=== PATIENT | male | born 1970 | race Caucasian/White ===

== ENCOUNTER 2019-01-22 04:37 | Emergency (ER) | payer BC ==
[2019-01-22] MEDS ORDERED: Succinylcholine 200 MG/10 ML MDV IV ONE (04:38)
[2019-01-22] MEDS ORDERED: Etomidate 2 MG/ML 20 ML SDV IVPUSH ONE (04:38)
[2019-01-22] MEDS ORDERED: Rocuronium 100 MG/10 ML MDV IV ONE (04:38)
[2019-01-22] MEDS ORDERED: Sodium Chloride 0.9% 10 ML Syringe FLUSH PRN (04:45)
[2019-01-22] MEDS ORDERED: Sodium Chloride 0.9% 2.5 ML Syringe FLUSH PRN (04:45)
[2019-01-22] MEDS ORDERED: ceFAZolin 2 GM in Premix Bag 1 BAG IV ONE (04:45)
[2019-01-22] MEDS ORDERED: Diphtheria,Pertussis(Acell),Tetanus Vaccine 0.5 ML Syringe IM ONE (04:45)
[2019-01-22] MEDS ORDERED: Diphtheria,Pertussis(Acell),Tetanus Vaccine 0.5 ML Syringe ONE (04:47)
[2019-01-22] MEDS ORDERED: ceFAZolin/Dextrose,Iso-Osmotic 2 GM/50 ML Duplex Bag IV ONE (04:47)
[2019-01-22] MEDS ORDERED: Sodium Chloride 0.9% 1,000 ML IV ONE ×2 (04:48→05:12)
--- NOTE | 2019-01-22 05:06 | EDM.PDOC ---
ED HPI GENERAL MEDICAL PROBLEM - General Chief Complaint: Trauma Stated Complaint: AMBULANCE Time Seen by Provider: 01/22/19 04:45 - History of Present Illness INITIAL COMMENTS - FREE TEXT/NARRATIVE: HISTORY AND PHYSICAL: History of present illness: The patient is a 48-year-old male who arrives via EMS after falling down stairs at his home which totaled proximally 15 feet and he was found by his sister after a short down time and she called EMS; on their arrival they noticed a significantly large scalp laceration on the left back of his head and he had a diminished [place] Coma Scale which they said he was 12. The patient had been drinking alcohol and further history about 2 nights of that is unclear and unknown. Past medical history surgical history and other information is unavailable at this time as the patient cannot offer any of that information and the sister is not present. Patient on arrival is nonverbal and having somnolent gurgling respirations and is on a backboard with a c-collar in place. Other information is unavailable at this time Review of systems: As per history of present illness and below otherwise all systems reviewed and negative. Past medical history: As per history of present illness and as reviewed below otherwise noncontributory. Surgical history: As per history of present illness and as reviewed below otherwise noncontributory. Social history: No reported history of drug or alcohol abuse. Family history: As per history of present illness and as reviewed below otherwise noncontributory. Physical exam: General: Well-developed well-nourished man who is nontoxic and not moving any extremities spontaneously. He is somnolent and has gurgling respirations. C- collar is in place and was maintained throughout the course of my evaluation. Backboard remains in place until I can perform that exam and then will be removed for a slider. HEENT: The patient is normocephalic but there is a large deep laceration noted at the parieto-occipital scalp measuring at least 8 cm with bone exposed but no brain matter is exposed or protruding,, pupils are 2 mm on the left and nonreactive and grossly dilated on the right and nonreactive, there is no evidence of any facial injury trauma soft tissue swelling, teeth are intact, negative for conjunctival pallor or scleral icterus, mucous membranes moist, throat clear, neck supple, nontender, trachea midline. The collar is in place and there is no gross midline step-offs or defects appreciated grossly on palpation Lungs: Clear to auscultation, with [id number], there is some diminished breath sounds at the bases, breath sounds equal bilaterally, and there is no palpable bony deformities defects or crepitus and no soft tissue injuries are appreciated Heart: S1S2, regular rhythm but the patient is bradycardic in the 60s, there is no overt murmurs appreciated, negative for clicks, rubs, or JVD. Abdomen: Soft, nondistended, nontender. Negative for masses or hepatosplenomegaly. L sounds are hypoactive. There is no evidence of any soft tissue injury appreciated such as ecchymosis or abrasion or erythema Pelvis: Stable to rock, there is a superficial abrasion/ecchymosis seen at the iliac crest on the left side without deformity Genitourinary: Normal male without any blood at the urethral meatus Rectal: Rectal tone is intact with light brown stool in the vault Extremities: Atraumatic, with no soft tissue injuries or bony deformities appreciated throughout all extremities Neuro: Patient is not moving any extremities spontaneously and is somnolent and unresponsive to painful stimuli as well as voice. Back: There are no midline step-offs or defects of the thoracic or lumbar spine no posterior rib defects or deformities crepitus and no posterior pelvis effects or deformities. There is no evidence of any soft tissue abrasions ecchymosis or erythema seen Diagnostics: EKG CBC CMP alcohol level lipase INR UA UDS 1 view chest x-ray 1 view pelvis 1 view C-spine Therapeutics: IV fluids O2 monitor patient was intubated emergently please see procedure note below, propofol for sedation, Ancef,Tdap Please note that at 04 58 the patient started to have severe bradycardia down to the 30s which then came back up to the 50s and 60s but his left pupil is now grossly dilated and unresponsive. Will continue to monitor and intervene appropriately. Procedure note: As the patient was having snoring respirations and a diminished [place] Coma Scale emergent intubation was felt to be indicated. The patient was preoxygenated and the c-collar was loosened but in line stabilization was constantly maintained throughout the procedure. Cricoid pressure was applied and etomidate and succinylcholine were administered and a 7.5 ET tube was placed without complication. There was some whitish secretions but no vomitus or blood on the cords. The patient tolerated the procedure well and there were no complications. CO2 monitor indicated good placement of the tube as stated good bilateral breath sounds. A postintubation x-ray will be performed. Propofol be started for sedation. 0447: As was discussed with Dr. Horne at [facility] in [place] who accepts the patient for transfer. Flight team is in route area Dr. Horne is aware that we will perform no trauma CTs and that will have to be performed on arrival there. 0500: Flight team is here at bedside and will begin packaging the patient for transfer. We have reviewed the one view pelvis and chest x-ray together and I will also follow-up the readings of these 2 films as well as the lateral C- spine. No pneumothorax is appreciated but there is suggestion of a pulmonary contusion on the left on my initial viewing. CRL readings will be forwarded to [facility] as well with films. All labs will be followed up as available and reviewed as well as sent to the receiving hospital. Impression: Closed head injury with significant scalp laceration and likely intracranial bleed Definitive disposition and diagnosis as appropriate pending reevaluation and review of above. Review of Systems - Review of Systems Review Of Systems: ROS reveals no pertinent complaints other than HPI. ED EXAM, GENERAL - Physical Exam Exam: See Below (See dictation) Course - Orders/Labs/Meds Orders: Active Orders 24 hr Category Date Time Status Blood Glucose Check, Bedside [RC] ONETIME Care 01/22/19 04:46 Ordered Cardiac Monitoring [RC] . DIRECTED Care 01/22/19 04:46 Ordered Oxygen Therapy, ED [RC] ASDIRECTED Care 01/22/19 04:46 Ordered Pulse Oximetry [RC] ASDIRECTED Care 01/22/19 04:46 Ordered Vaccines to be Administered [RC] PER UNIT ROUTINE Care 01/22/19 04:45 Active Cervical Spine 2V or 3V [CR] Stat Exams 01/22/19 04:46 Ordered Chest 1V Frontal [CR] Stat Exams 01/22/19 04:46 Ordered Pelvis 1V or 2V [CR] Stat Exams 01/22/19 04:46 Ordered COMPREHENSIVE METABOLIC PN,CMP [CHEM] Stat Lab 01/22/19 04:41 Ordered DRUG SCREEN, URINE [URCHEM] Stat Lab 01/22/19 04:46 Ordered ETHANOL BLOOD MEDICAL [CHEM] Stat Lab 01/22/19 04:41 Ordered INR,PT,PROTHROMBIN TIME [COAG] Stat Lab 01/22/19 04:46 Ordered LIPASE [CHEM] Stat Lab 01/22/19 04:46 Ordered UA RFX ALFRED AND CULT IF INDIC [URIN] Stat Lab 01/22/19 04:46 Ordered Sodium Chloride 0.9% [Normal Saline] 1,000 ml Med 01/22/19 04:48 Ordered IV STAT Sodium Chloride 0.9% [Saline Flush] Med 01/22/19 04:45 Ordered 10 ml FLUSH ASDIRECTED PRN Sodium Chloride 0.9% [Saline Flush] Med 01/22/19 04:45 Ordered 2.5 ml FLUSH ASDIRECTED PRN ceFAZolin [Ancef] 2 gm Med 01/22/19 04:45 Active Premix Bag 1 bag IV ONETIME Saline Lock Insert [OM.PC] Stat Oth 01/22/19 04:46 Ordered Medication Orders Cefazolin Sodium/Dextrose 2 gm (/ Premix) 50 mls @ 100 mls/hr IV ONETIME ONE Stop: 01/22/19 05:14 Sodium Chloride (Normal Saline) 1,000 mls @ 999 mls/hr IV STAT ONE Stop: 01/22/19 05:48 Sodium Chloride (Saline Flush) 10 ml FLUSH ASDIRECTED PRN PRN Reason: Keep Vein Open Sodium Chloride (Saline Flush) 2.5 ml FLUSH ASDIRECTED PRN PRN Reason: Keep Vein Open Labs: Laboratory Tests 01/22/19 Range/Units 04:35 WBC 13.65 H (4.0-11.0) K/uL RBC 4.74 (4.50-5.90) M/uL Hgb 14.5 (13.0-17.0) g/dL Hct 41.7 (38.0-50.0) % MCV 88.0 (80.0-98.0) fL MCH 30.6 (27.0-32.0) pg MCHC 34.8 (31.0-37.0) g/dL RDW Std Deviation 45.6 (28.0-62.0) fl RDW Coeff of Sarabjit 14 (11.0-15.0) % Plt Count 165 (150-400) K/uL MPV 10.50 (7.40-12.00) fL Neut % (Auto) 41.2 L (48.0-80.0) % Lymph % (Auto) 50.2 H (16.0-40.0) % [place] % (Auto) 6.7 (0.0-15.0) % Eos % (Auto) 1.6 (0.0-7.0) % Baso % (Auto) 0.3 (0.0-1.5) % Neut # (Auto) 5.6 (1.4-5.7) K/uL Lymph # (Auto) 6.9 H (0.6-2.4) K/uL [place] # (Auto) 0.9 H (0.0-0.8) K/uL Eos # (Auto) 0.2 (0.0-0.7) K/uL Baso # (Auto) 0.0 (0.0-0.1) K/uL Nucleated RBC % 0.0 /100WBC Nucleated RBCs # 0 K/uL Meds: Medications Generic Name Dose Route Start Last Admin Trade Name Freq PRN Reason Stop Dose Admin Cefazolin Sodium/Dextrose 2 gm 50 mls @ 100 mls/hr 01/22/19 04:45 / Premix IV 01/22/19 05:14 ONETIME ONE Sodium Chloride 1,000 mls @ 999 mls/hr 01/22/19 04:48 Normal Saline IV 01/22/19 05:48 STAT ONE Sodium Chloride 10 ml 01/22/19 04:45 Saline Flush FLUSH ASDIRECTED PRN Keep Vein Open Sodium Chloride 2.5 ml 01/22/19 04:45 Saline Flush FLUSH ASDIRECTED PRN Keep Vein Open Discontinued Medications Generic Name Dose Route Start Last Admin Trade Name Freq PRN Reason Stop Dose Admin Cefazolin Sodium/Dextrose Confirm 01/22/19 04:47 Ancef Administered 01/22/19 04:48 Dose 2 gm IV .STK-MED ONE Diphtheria/Tetanus/Acell Pertussis 0.5 ml 01/22/19 04:45 Adacel IM 01/22/19 04:46 .ONCE ONE Diphtheria/Tetanus/Acell Pertussis Confirm 01/22/19 04:47 Adacel Administered 01/22/19 04:48 Dose 0.5 ml .ROUTE .STK-MED ONE Propofol Confirm 01/22/19 04:47 Diprivan 100 Ml Administered 01/22/19 04:48 Dose 100 mls @ as directed .ROUTE .STK-MED ONE Departure - Departure Time of Disposition: 05:06 Disposition: DC/Tfer to Acute Hospital 02 Condition: Critical Clinical Impression: Intracranial bleed Closed head injury Qualifiers: Encounter type: initial encounter Qualified Code(s): S09.90XA - Unspecified injury of head, initial encounter Altered mental status Qualifiers: Altered mental status type: unspecified Qualified Code(s): R41.82 - Altered mental status, unspecified - Discharge Information - My Orders Last 24 Hours: My Active Orders 01/22/19 04:41 COMPREHENSIVE METABOLIC PN,CMP [CHEM] Stat ETHANOL BLOOD MEDICAL [CHEM] Stat 01/22/19 04:45 Vaccines to be Administered [RC] PER UNIT ROUTINE Sodium Chloride 0.9% [Saline Flush] 10 ml FLUSH ASDIRECTED PRN Sodium Chloride 0.9% [Saline Flush] 2.5 ml FLUSH ASDIRECTED PRN ceFAZolin [Ancef] 2 gm Premix Bag 1 bag IV ONETIME 01/22/19 04:46 Blood Glucose Check, Bedside [RC] ONETIME Cardiac Monitoring [RC] . DIRECTED Oxygen Therapy, ED [RC] ASDIRECTED Pulse Oximetry [RC] ASDIRECTED Cervical Spine 2V or 3V [CR] Stat Chest 1V Frontal [CR] Stat Pelvis 1V or 2V [CR] Stat DRUG SCREEN, URINE [URCHEM] Stat INR,PT,PROTHROMBIN TIME [COAG] Stat LIPASE [CHEM] Stat UA RFX ALFRED AND CULT IF INDIC [URIN] Stat Saline Lock Insert [OM.PC] Stat 01/22/19 04:48 Sodium Chloride 0.9% [Normal Saline] 1,000 ml IV STAT - Assessment/Plan Last 24 Hours: My Active Orders 01/22/19 04:41 COMPREHENSIVE METABOLIC PN,CMP [CHEM] Stat ETHANOL BLOOD MEDICAL [CHEM] Stat 01/22/19 04:45 Vaccines to be Administered [RC] PER UNIT ROUTINE Sodium Chloride 0.9% [Saline Flush] 10 ml FLUSH ASDIRECTED PRN Sodium Chloride 0.9% [Saline Flush] 2.5 ml FLUSH ASDIRECTED PRN ceFAZolin [Ancef] 2 gm Premix Bag 1 bag IV ONETIME 01/22/19 04:46 Blood Glucose Check, Bedside [RC] ONETIME Cardiac Monitoring [RC] . DIRECTED Oxygen Therapy, ED [RC] ASDIRECTED Pulse Oximetry [RC] ASDIRECTED Cervical Spine 2V or 3V [CR] Stat Chest 1V Frontal [CR] Stat Pelvis 1V or 2V [CR] Stat DRUG SCREEN, URINE [URCHEM] Stat INR,PT,PROTHROMBIN TIME [COAG] Stat LIPASE [CHEM] Stat UA RFX ALFRED AND CULT IF INDIC [URIN] Stat Saline Lock Insert [OM.PC] Stat 01/22/19 04:48 Sodium Chloride 0.9% [Normal Saline] 1,000 ml IV STAT
--- NOTE | 2019-01-22 05:11 | CR ---
INDICATION: Fall TECHNIQUE: AP pelvis COMPARISON: None FINDINGS: Bones: Alignment is normal. No fractures or bone lesions. Joint spaces: Unremarkable. Soft tissues: Unremarkable. IMPRESSION: No evidence of acute trauma. Dictated by Santos Roberts MD @ Jan 22 2019 5:38AM Signed by Dr. Santos Roberts @ Jan 22 2019 5:51AM
--- NOTE | 2019-01-22 05:11 | CR ---
INDICATION: Fall TECHNIQUE: Chest 1 view. COMPARISON: None FINDINGS: Cardiovascular and mediastinum: Heart size and vasculature are normal in caliber and appearance. Mediastinum is within normal limits. Lungs and pleural space: Lungs are clear. No sign of infiltrate or mass. No sign of pleural effusion. No pneumothorax. The ET tube is in place the tip 4.0 centimeters from the sg. Bones and soft tissues: No significant findings. IMPRESSION: No evidence of acute trauma. ET tube in place with the tip 4.0 centimeters from the sg. Dictated by Santos Roberts MD @ Jan 22 2019 5:38AM Signed by Dr. Santos Roberts @ Jan 22 2019 5:51AM
[2019-01-22 05:23] LABS: CHLORIDE,CL 97 mmol/L (98-107); SODIUM,NA 133 mmol/L (136-148)
--- NOTE | 2019-01-22 05:25 | CR ---
INDICATION: Fall TECHNIQUE: Single lateral view of the cervical spine COMPARISON: None FINDINGS: C6 through T1 are not visualized. Bones: Alignment is normal. No fractures or bone lesions. Joint spaces: Unremarkable. Soft tissues: Unremarkable. IMPRESSION: No evidence of acute cervical spine trauma. C6 through T1 are not visualized. Dictated by Santos Roberts MD @ Jan 22 2019 5:37AM Signed by Dr. Santos Roberts @ Jan 22 2019 5:51AM
[2019-01-22] MEDS ORDERED: Sodium Chloride 0.9% 1,000 ML IV STA (05:57)
== END 2019-01-22 05:32 ==
LOC: MW.ED 04:37
DX: S06.309A Unspecified focal traumatic brain injury with loss of consciousness of unspecified duration, initial encounter (principal); S01.01XA Laceration without foreign body of scalp, initial encounter; R41.82 Altered mental status, unspecified; Z23 Encounter for immunization; W10.9XXA Fall (on) (from) unspecified stairs and steps, initial encounter
CPT/HCPCS: 31500; 36415; 51702; 71045; 72020; 72170; 80053; 80305; 81001; 83690; 85025; 85610; 90471; 90715; 93005; 96360; 96365; 96375; 99291; G0390; G0480; J0330; J0690; J3490; J7040; 72040-26; 99285